=== PATIENT | female | born 1955 | race Caucasian/White ===

== ENCOUNTER → 2017-01-11 | Outpatient (CLI) | payer OTHER ==
[~2017-01-11] VITALS: Ht 170.2 cm; Wt 99.8 kg
[~2017-01-11] MED LIST: AMLODIPINE BESY10 MG PO; AZOR 10-20 MG1 EACH PO; BENICAR20 MG PO; CORGARD20 M1 PO; CYMBALTA30 MG PO; CYMBALTA60 MG PO; HYDROCODON-ACE1 EAC5 PO; HYDROCODONE-AP1 EAC6 PO; LEVOTHYROXIN0.137 M1 PO; LEVOTHYROXINE 0.15MG PO; NABUMETONE 750750 M1 PO; NORCO 5-325 TA1 EACH PO; NORTRIPTYLINE H10 M1 PO; PROTONIX40 M1 PO; ZETIA10 MG PO
--- NOTE | ~2017-01-11 | HPC ---
[facility] [place] [address] PAIN MANAGEMENT CONSULTATION Name: JONATAN CHARLES Room #: [facility]#: [id number] Admission: 01/11/17 Attend Phys: Ray Hyde DO Discharge: Date of : 55 Report #: [id number] THIS REPORT FOR: //name// CC: Ray Hansen MD DATE OF SERVICE: 01/11/2017 REFERRING PHYSICIAN: Tanisha Hansen MD CHIEF COMPLAINT: Low back and left lower extremity pain. HISTORY OF PRESENT ILLNESS: As you know, the patient is a 61-year-old female who has returned today in followup visit with recurrent low back pain, left lower extremity pain with paresthesias. The patient places current pain score at around 5/10. States her pain is burning, aching, knife-like in sensation, exacerbated with sitting, worsens throughout the day, standing from a seated position exacerbates pain as well as climbing stairs. Medications, heat and cold compresses, epidural injections helped resolve symptoms. Previous epidural injection provided 70% improvement in overall pain lasting for 4 months. She returns today in followup visit requesting next in a series of epidural injections, also requesting refill on hydrocodone. ALLERGIES: No known drug allergies. CURRENT MEDICATIONS: Zetia, olmesartan, pantoprazole, levothyroxine, liothyronine, nortriptyline, Corgard, hydrocodone. SOCIAL HISTORY: The patient denies tobacco, alcohol, IV or illicit drug use. She is working, not receiving workmen's compensation, unaccompanied today. IMAGING: No new imaging available. PHYSICAL EXAMINATION: VITAL SIGNS: Blood pressure 130/84, pulse 85, respiratory rate 16, unlabored. The patient is 100% on room air. Height 5 feet 7 inches tall, weight 220 pounds, BMI calculated 34.4. GENERAL: Well-developed, well-nourished, well-hydrated exogenously obese 61-year-old female appearing stated age, placing current pain score at 5/10. HEENT: Normocephalic, atraumatic. Pupils equal, round, reactive to light. EXTREMITIES: Show no clubbing, no cyanosis, no edema. MUSCULOSKELETAL: Modified Gaenslen's positive for axial low back pain. Gait antalgic favoring left lower extremity over right. Muscle bulk and tone appears equal and symmetrical. Seated straight leg raising negative. Supine straight leg raising positive, left. [address] [address] PAIN MANAGEMENT CONSULTATION Name: JONATAN CHARLES Room #: [facility]#: [id number] Admission: 01/11/17 Attend Phys: Ray Hyde DO Discharge: Date of : 55 Report #: [id number] ASSESSMENT: 1. Symptomatic lumbar radiculopathy. 2. Displacement of lumbar intervertebral disk with radiculopathy. 3. Lumbosacral spondylosis with radiculopathy. 4. Neural foraminal stenosis of the lumbar spine. 5. Chronic intractable pain. PLAN: 1. The patient has returned today in followup visit having noted 70% improvement in overall pain lasting nearly 4 months with the epidural injection provided at last visit. She has requested to undergo the procedure today as she has had a slow and progressive return of symptoms. She denies injury or trauma that may have led to recurrence of symptoms. I have consented we will perform a lumbar epidural injection under fluoroscopic and she was advised the risks and benefits of the procedure. These risks include but are not necessarily limited to bleeding, bruising, infection, worsening pain, no relief of pain, also risk of temporary or permanent muscle weakness, temporary or permanent nerve damage, possible paralysis and . The patient states understood and wished to proceed. 2. The patient was provided a refill prescription on hydrocodone 10/325 one tab p.o. q. 8 hours p.r.n. for pain, given the patient #90 tablets. She is to take this medication only when pain is intolerable, not to rely on the medication prophylactically. 3. The patient returns to our clinic on an as needed basis for possible repeat epidural injection. PROCEDURE NOTE: DESCRIPTION OF PROCEDURE: Lumbar epidural steroid injection under fluoroscopic guidance. This is the third procedure of the first series that the patient is undergoing. After obtaining written consent, the patient was taken back to the fluoroscopy suite, placed in a prone position with pillow under the abdomen to decrease lumbar lordosis. The skin overlying the lumbosacral area was then prepped and draped in aseptic fashion. The lumbar vertebral interspace was then identified by AP fluoroscopy. The skin and subcutaneous tissue overlying the target site of injection was anesthetized with 3 mL 1% lidocaine. A 20-gauge 4-1/2 inch Tuohy needle was then advanced under fluoroscopic guidance towards the epidural space using a left paramedian approach. The epidural space was identified using loss of resistance to air technique. After negative aspiration for heme or cerebrospinal fluid, a total of 1 mL of Omnipaque was injected. A lumbar epidurogram was confirmed using both AP and lateral [address] [address] PAIN MANAGEMENT CONSULTATION Name: JONATAN CHARLES Room #: [facility]#: [id number] Admission: 01/11/17 Attend Phys: Ray Hyde DO Discharge: Date of : 55 Report #: [id number] fluoroscopy. After negative aspiration for heme or cerebrospinal fluid, , 5 mL of a solution containing 2 mL 40 mg per mL, 80 mg total triamcinolone, 3 mL lidocaine 1% was injected in increments. Contrast spread was noted in posterior epidural space. The needle was then retracted approximately half way and needle tract flushed with 1 mL of 1% lidocaine. Needle was then removed. There were no apparent sensory or motor deficits in the lower extremity following the procedure. A sterile bandage was placed over the injection site. The heart rate, pulse, oximetry and blood pressure were continuously monitored after the procedure. There were no apparent complications. The patient tolerated the procedure well and was carefully escorted to the recovery room in stable condition. There were no apparent complications. After meeting discharge criteria, the patient was then discharged home. <ELECTRONICALLY SIGNED> By: Ray Hyde DO 01/16/17 0710 [id number] Ray Hyde DO /nt
[2017-01-11 09:00] VITALS: BP 130/84
== END | disposition home or self-care (01) ==
LOC: PAIN 07:10
DX: M51.16 Intervertebral disc disorders with radiculopathy, lumbar region (principal); M47.27 Other spondylosis with radiculopathy, lumbosacral region; M48.06 Spinal stenosis, lumbar region; G89.29 Other chronic pain; F11.20 Opioid dependence, uncomplicated

== ENCOUNTER → 2017-03-31 | Outpatient (CLI) | payer OTHER | LOC: MRI 08:10 | DX: M25.531 Pain in right wrist (principal) ==

== ENCOUNTER → 2017-04-12 | Outpatient (CLI) | payer OTHER ==
[2017-04-12 10:50] LABS: CALCIUM 9.4 mg/dL (8.5-10.1); POTASSIUM 4.4 mmol/L (3.5-5.1)
== END ==
LOC: LAB 10:07
PROVIDERS: Anesthesiology
DX: I10 Essential (primary) hypertension (principal)